=== PATIENT | male | born 1945 | race Caucasian/White ===

== ENCOUNTER 2021-05-13 11:18 | Outpatient (CLI) | payer MEDICARE, SELFPAY ==
--- NOTE | 2021-05-13 12:30 | PET_ITS ---
EXAMINATION: 18F Fluciclovine PET/CT INDICATIONS: A 75-year-old male with history of primary prostate carcinoma presenting for restaging examination. COMPARISON: None available PROCEDURE: The patient received an intravenous bolus injection of 10.4 mCi of Axumin (fluciclovine F-18) via the right antecubital fossa, on the imaging table with the patient in the supine position followed by an intravenous normal saline flush. The patient in the supine position with arms above the head, CT scan for attenuation correction was performed immediately following the bolus injection and left up for 1-2 minutes. The PET scan acquisition was begun within 3-5 minutes following injection from mid thigh to the base of the skull. The total scan time was registered between 20-30 minutes. Axumin (fluciclovine F-18) injection is indicated for positron emission tomography PET imaging in men with suspected prostate cancer recurrence based on elevation of the serum prostatic surface antigen (PSA) levels following prior treatment intervention. HEIGHT: 68 inches. WEIGHT: 165 lbs. LIVER BLOOD POOL SUV: 8.3 BLOOD POOL: 1.2 BONE MARROW: 3.0 INDEX LESION SIZE SUV INTERPRETATION Lower pelvis, prostate gland, heterogeneous 4.7 (max) > bone marrow ref. High likelihood of viable neoplasm FINDINGS: Head/Neck: No evidence of radiotracer distribution within the cranial vault. Symmetric tracer uptake is observed in the bilateral parotid and submandibular glands. CHEST: There is no quantitative scintigraphic evidence of abnormal increased metabolism within the context of the bilateral hemithorax pulmonary parenchyma, right and left hemithoracic pleural interface, mediastinal structures and thoracic perihilum. There is visualization of the left ventricular myocardium and proximal-distal esophagus most consistent with physiologic tracer uptake. Pertinent chest CT findings are as follows. There is atherosclerotic calcification defined in the thoracic aorta without evidence of dilatation-aneurysm formation. Coronary arterial calcification is observed. Bilateral axillary soft tissue densities with fatty hilus are ametabolic. Mediastinal soft tissue demonstrates no evidence of quantitatively significant increased FDG uptake. Parenchymal densities manifest in the bilateral mid-lower posterior lung zones are non-tracer avid. Abdomen/Pelvis: Increased radiopharmaceutical concentration is observed in the lower pelvis which appears associated with the prostate gland, prostate bed with anatomic localization difficult secondary to extensive beam hardening artifact attributed to right and left hip arthroplasties. The calculated maximal standard uptake value is 4.7, greater than the bone marrow reference. Review of CT of the abdomen and pelvis demonstrates the following.. There is atherosclerotic calcification defined in the abdominal aorta without evidence of dilatation-aneurysm formation. Pelvic arterial calcification is observed. Significant beam hardening artifact is demonstrated in the lower pelvic CT acquisitions. 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 Postsurgical changes are manifest in the anterior pelvic wall. Skeletal: Degenerative changes are noted in the cervical, thoracic and lumbar spine without evidence of increased radiopharmaceutical concentration. There is no evidence of sclerotic, mixed sclerotic-lytic and/or lytic changes noted on review of the skeletal structures manifesting an increase in radiotracer uptake. PET/PET/CT Tumor WB Initial IMPRESSION: 1. Heterogeneous radiopharmaceutical concentration observed in the lower pelvis associated with the prostate gland, prostate bed likely represents viable neoplastic transformation with the calculated maximal standard uptake value exceeding that defined in the bone marrow reference. (Silvia et al, Journal of Nuclear Medicine 55:1986, 2014). 2. No other quantitatively significant hypermetabolic abnormalities are noted. Electronic Signature Malcolm Weston D.O. Electronically Signed: Malcolm Weston DO at 17:46 EST ,
== END 2021-05-13 23:59 | disposition home or self-care (01) ==
LOC: ONC 11:24
DX: C61 Malignant neoplasm of prostate (principal)
CPT/HCPCS: 78816; A9588